=== PATIENT | female | born 1935 | race Caucasian/White ===

== ENCOUNTER 2020-02-01 07:59 | Emergency (ER) | payer MEDICARE, BC ==
--- NOTE | 2020-02-01 08:31 | EDM.PDOC ---
ED HPI GENERAL MEDICAL PROBLEM - General Chief Complaint: Neurological Problem Stated Complaint: dizzy Time Seen by Provider: 02/01/20 08:31 Source of Information: Reports: Patient, RN, RN Notes Reviewed History Limitations: Reports: No Limitations - History of Present Illness INITIAL COMMENTS - FREE TEXT/NARRATIVE: patient presents to ER with complaint of new onset dizziness. Patient states at 3:00 this morning she rolled over in bed and became very dizzy, with some nausea as well. Patient states when she gets up or turns her head she becomes very dizzy. Patient denies having dizziness in the past, denies any weakness. Patient denies any health problems, states she takes only vitamins on a daily basis. Patient denies any recent illness. States she has had somewhat of a runny nose, but denies fever, chills, nausea, vomiting, diarrhea, chest pains, shortness of breath. Patient denies any known exposure to anyone ill, and no travel. NIH score negative Onset: Gradual - Related Data Allergies Allergy/AdvReac Type Severity Reaction Status Date / Time No Known Allergies Allergy Verified 02/01/20 08:10 Home Meds: Home Meds Calcium Carbonate/Vitamin D3 [Calcium 500 + Vit D 400] 1 tab PO DAILY 02/01/20 [ History] Furosemide 20 mg PO DAILY 02/01/20 [History] Omeprazole 20 mg PO DAILY 02/01/20 [History] Risedronate Sodium 35 mg PO Q7D 02/01/20 [History] atorvaSTATin [Lipitor] 20 mg PO DAILY 02/01/20 [History] Past Medical History HEENT History: Reports: Impaired Vision Other HEENT History: wears glasses Cardiovascular History: Reports: High Cholesterol Respiratory History: Reports: None Gastrointestinal History: Reports: GERD Genitourinary History: Reports: None NANOFABRICATION SPECIALIST History: Reports: Musculoskeletal History: Reports: Osteoporosis Neurological History: Reports: None Psychiatric History: Reports: None Endocrine/Metabolic History: Reports: Osteoporosis Immunologic History: Reports: None Oncologic (Cancer) History: Reports: None Dermatologic History: Reports: None - Past Surgical History HEENT Surgical History: Reports: None Cardiovascular Surgical History: Reports: None Musculoskeletal Surgical History: Reports: None Social & Family History - Tobacco Use Smoking Status *Q: Never Smoker Second Hand Smoke Exposure: No - Caffeine Use Caffeine Use: Reports: Coffee - Recreational Drug Use Recreational Drug Use: No ED ROS GENERAL - Review of Systems Review Of Systems: Comprehensive ROS is negative, except as noted in HPI. ED EXAM, NEURO - Physical Exam Exam: See Below Exam Limited By: No Limitations General Appearance: Alert, WD/WN Eye Exam: Bilateral Eye: EOMI, Nystagmus Ears: Normal External Exam, Normal Canal, Hearing Grossly Normal, Normal TMs Nose: Normal Inspection Throat/Mouth: Normal Inspection, Normal Voice, No Airway Compromise Head Exam: Atraumatic, Normocephalic Neck: Normal Inspection, Supple, Non-Tender, Full Range of Motion Respiratory/Chest: No Respiratory Distress, Lungs Clear, Normal Breath Sounds, No Accessory Muscle Use, Chest Non-Tender Cardiovascular: Normal Peripheral Pulses, Regular Rate, Rhythm, No Edema, No Gallop, No JVD, No Murmur, No Rub GI/Abdominal: Normal Bowel Sounds, Soft, Non-Tender, No Organomegaly, No Distention, No Abnormal Bruit, No Mass (Female) Exam: Deferred Rectal (Female) Exam: Deferred Neurological: Alert, Normal Mood/Affect, Normal Dorsiflexion, CN II-XII Intact, Normal Plantar Flexion, Normal Gait, Normal Reflexes, No Motor/Sensory Deficits , Oriented x 3 Back Exam: Normal Inspection, Full Range of Motion, NT Extremities: Normal Inspection, Normal Range of Motion, Non-Tender, No Pedal Edema, Normal Capillary Refill Psychiatric: Normal Affect, Normal Mood Skin Exam: Warm, Dry, Intact, Normal Color, No Rash Course - Vital Signs Last Recorded V/S: Last Vital Signs Temp 97.6 F 02/01/20 08:05 Pulse 88 02/01/20 08:05 Resp 16 02/01/20 08:05 BP 158/80 H 02/01/20 08:05 Pulse Ox 98 02/01/20 08:05 - Orders/Labs/Meds Orders: Active Orders 24 hr Category Date Time Status Peripheral IV Care [RC] . DIRECTED Care 02/01/20 08:50 Active UA RFX KAYLI AND CULT IF INDIC [URIN] Stat Lab 02/01/20 08:49 Ordered Sodium Chloride 0.9% [Saline Flush] Med 02/01/20 08:49 Active 10 ml FLUSH ASDIRECTED PRN Peripheral IV Insertion Adult [OM.PC] Stat Oth 02/01/20 08:49 Ordered Medication Orders Sodium Chloride (Saline Flush) 10 ml FLUSH ASDIRECTED PRN PRN Reason: Keep Vein Open Last Admin: 02/01/20 09:18 Dose: 10 ml Labs: Laboratory Tests 02/01/20 02/01/20 Range/Units 09:07 09:07 WBC 9.0 (5.0-10.0) 10^3/uL RBC 4.66 (4.2-5.4) 10^6/uL Hgb 13.2 (12.0-16.0) g/dL Hct 39.5 (37.0-47.0) % MCV 84.8 (80-100) fL MCH 28.3 (27.0-34.0) pg MCHC 33.4 (33.0-35.0) g/dL Plt Count 263 (150-450) 10^3/uL Neut % (Auto) 75.8 H (42.2-75.2) % Lymph % (Auto) 15.6 L (20.5-50.1) % [place] % (Auto) 7.9 (2-8) % Eos % (Auto) 0.1 L (1.0-3.0) % Baso % (Auto) 0.6 (0.0-1.0) % Sodium 139 (136-145) mmol/L Potassium 3.5 (3.5-5.1) mmol/L Chloride 100 (98-107) mmol/L Carbon Dioxide 31 (21-32) mmol/L Anion Gap 11.5 (7-13) mEq/L BUN 25 H (7-18) mg/dL Creatinine 0.88 (0.55-1.02) mg/dL Est Cr Clr Drug Dosing 30.46 mL/min Estimated GFR (MDRD) > 60 BUN/Creatinine Ratio 28.4 (No establ ref range) Glucose 130 H (74-99) mg/dL Calcium 8.6 (8.5-10.1) mg/dL Total Bilirubin 0.3 (0.2-1.0) mg/dL AST 22 (15-37) U/L ALT 29 (14-59) U/L Alkaline Phosphatase 115 (46-116) U/L Total Protein 7.6 (6.4-8.2) g/dL Albumin 3.2 L (3.4-5.0) g/dL Globulin 4.4 Albumin/Globulin Ratio 0.73 Meds: Medications Generic Name Dose Route Start Last Admin Trade Name Colbyq PRN Reason Stop Dose Admin Sodium Chloride 10 ml 02/01/20 08:49 02/01/20 09:18 Saline Flush FLUSH 10 ml ASDIRECTED PRN Administration Keep Vein Open Discontinued Medications Generic Name Dose Route Start Last Admin Trade Name Colbyq PRN Reason Stop Dose Admin Meclizine HCl 12.5 mg 02/01/20 09:27 02/01/20 09:37 Antivert PO 02/01/20 09:28 12.5 mg ONETIME ONE Administration Ondansetron HCl 4 mg 02/01/20 09:18 02/01/20 09:22 Zofran IV 02/01/20 09:19 4 mg ONETIME ONE Administration - Radiology Interpretation Free Text/Narrative:: Head CT wo contrast: FINDINGS: Brain: Prominent sulci. Patchy hypodensity of the cerebral white matter which are nonspecific but likely secondary to microangiopathic changes. Bilateral basal ganglia lacunes are present. Ventricles: The ventricles are prominent secondary to diffuse volume loss/ atrophy. Bones/joints: Unremarkable. No acute fracture. Sinuses: Visualized sinuses are unremarkable. No fluid levels. Mastoid air cells: Visualized mastoid air cells are well aerated. Soft tissues: Unremarkable. IMPRESSION: Chronic age related changes but no evidence of acute intracranial pathology. Thank you for allowing us to participate in the care of your patient. Dictated and Authenticated by: Eloisa Marcelino MD 02/01/2020 9:20 AM Central Time ([place] & [place]) see rad report Departure - Departure Time of Disposition: 09:39 Disposition: Home, Self-Care 01 Condition: Fair Clinical Impression: Vertigo - Discharge Information *PRESCRIPTION DRUG MONITORING PROGRAM REVIEWED*: No *COPY OF PRESCRIPTION DRUG MONITORING REPORT IN PATIENT JG: No Instructions: Vertigo, [id number], Dizziness, [id number] Forms: ED Department Discharge Additional Instructions: On Sunday call [facility] Physical Therapy department to schedule an appointment [phone] RX: Meclizine Follow up with your primary care facility tomorrow. Call Venancio Leyva's office tomorrow to have a urinalysis done Sit up on the edge of chair/bed before standing. Take precautions so you do not fall Drink plenty of water Sepsis Event Note - Evaluation Sepsis Screening Result: No Definite Risk - Focused Exam Vital Signs: Vital Signs Temp Pulse Resp BP Pulse Ox 02/01/20 08:05 97.6 F 88 16 158/80 H 98 Date Exam was Performed: 02/01/20 Time Exam was Performed: 10:45 - My Orders Last 24 Hours: My Active Orders 02/01/20 08:49 UA RFX KAYLI AND CULT IF INDIC [URIN] Stat Sodium Chloride 0.9% [Saline Flush] 10 ml FLUSH ASDIRECTED PRN Peripheral IV Insertion Adult [OM.PC] Stat 02/01/20 08:50 Peripheral IV Care [RC] . DIRECTED - Assessment/Plan Last 24 Hours: My Active Orders 02/01/20 08:49 UA RFX KAYLI AND CULT IF INDIC [URIN] Stat Sodium Chloride 0.9% [Saline Flush] 10 ml FLUSH ASDIRECTED PRN Peripheral IV Insertion Adult [OM.PC] Stat 02/01/20 08:50 Peripheral IV Care [RC] . DIRECTED
[2020-02-01] MEDS ORDERED: Sodium Chloride 0.9% 10 ML Syringe FLUSH PRN (08:49)
[2020-02-01] MEDS ORDERED: Ondansetron 4 MG/2 ML SDV IV ONE (09:18)
[2020-02-01] MEDS ORDERED: Meclizine 12.5 MG Tab PO ONE (09:27)
[2020-02-01 09:31] LABS: ANION GAP 11.5 mEq/L (7-13); CHLORIDE,CL 100 mmol/L (98-107); SODIUM,NA 139 mmol/L (136-145)
== END 2020-02-01 11:08 | disposition home or self-care (01) ==
LOC: DL.ED 07:59
DX: R42 Dizziness and giddiness (principal); K21.9 Gastro-esophageal reflux disease without esophagitis; E78.00 Pure hypercholesterolemia, unspecified; Z79.899 Other long term (current) drug therapy
CPT/HCPCS: 36415; 70450; 80053; 85025; 96374; 99284; A9270; J2405; 99283

== ENCOUNTER 2020-12-22 08:54 | Day surgery (SDC) | payer MEDICARE, OTHER ==
[2020-12-22] MEDS ORDERED: Dexamethasone 4 MG/ML SDV IV ONE (08:55)
[2020-12-22] MEDS ORDERED: Sodium Chloride 0.9% 10 ML Syringe IV ONE (08:55)
[2020-12-22] MEDS ORDERED: Midazolam 1 MG/ML 2 ML SDV IV ONE (08:55)
[2020-12-22] MEDS ORDERED: Povidone-Iodine 5% Sterile Ophth Soln 30 ML Bottle EYELF ONE ×2 (09:00→09:48)
[2020-12-22] MEDS ORDERED: Timolol Maleate 0.5% Ophth Soln 5 ML Bottle EYELF ONE (09:00)
[2020-12-22] MEDS ORDERED: Cataract Ophth Solution EYELF ONE (09:00)
[2020-12-22] MEDS ORDERED: Proparacaine 0.5% Ophth Soln 15 ML Bottle EYELF ONE (09:00)
[2020-12-22] MEDS ORDERED: Phenylephrine 10% Ophth Soln 5 ML Bot EYELF ONE (09:00)
[2020-12-22] MEDS ORDERED: Acetaminophen 325 MG Tab PO PRN (09:00)
[2020-12-22] MEDS ORDERED: Moxifloxacin 0.5% Ophth Soln 3 ML Bottle EYELF ONE (09:00)
[2020-12-22] MEDS ORDERED: Phenylephrine 10% Ophth Soln 5 ML Bot EYELF PRN (09:00)
[2020-12-22] MEDS ORDERED: Tropicamide 1% Ophth Soln 15 ML Bottle EYELF ONE (09:00)
[2020-12-22] MEDS ORDERED: Sodium Chloride 0.9% 10 ML Syringe FLUSH PRN (09:00)
[2020-12-22] MEDS ORDERED: Ondansetron 4 MG/2 ML SDV IVPUSH PRN (09:00)
[2020-12-22] MEDS ORDERED: Lidocaine 1% 30 ML SDV ONE (09:47)
[2020-12-22] MEDS ORDERED: Tetracaine HCl/PF 0.5% 4 ML Bottle EYELF ONE (09:48)
[2020-12-22] MEDS ORDERED: Diclofenac Sodium 0.1% Ophth Soln 5 ML Bottle EYELF ONE (09:48)
[2020-12-22] MEDS ORDERED: Apraclonidine 0.5% Ophth Soln 5 ML Bot EYELF ONE (09:48)
[2020-12-22] MEDS ORDERED: Vancomycin 500 MG SDV EYELF ONE (09:49)
[2020-12-22] MEDS ORDERED: Balanced Salt Solution Ophth Irrig 500 ML Bottle IOCULAR ONE (09:49)
[2020-12-22] MEDS ORDERED: Dexamethasone/Neomycin/Polymyxin B Ophth Oint 3.5 GM Tube EYELF ONE (09:49)
[2020-12-22] MEDS ORDERED: Chondroitin Sulfate/Hyaluronate Sodium Ophth Inj 0.75 ML Syringe EYELF ONE (09:49)
[2020-12-22] MEDS ORDERED: Dexamethasone 4 MG/ML SDV IOCULAR ONE (09:50)
--- NOTE | 2020-12-22 11:34 | OR ---
DATE: 12/22/2020 PREOPERATIVE DIAGNOSIS: Visually significant mixed cataract, left eye. POSTOPERATIVE DIAGNOSIS: Visually significant mixed cataract, left eye. PROCEDURE: Extracapsular cataract extraction with intraocular lens implant, left eye. ANESTHESIA: Topical/local MAC. COMPLICATIONS: None. INDICATION: Mrs. Andrew was seen in the clinic. She has complained of a progressive decrease in vision. She has difficulty with multiple activities of daily living. She has difficulty driving and actually has stopped driving because she is uncomfortable and feels unsafe. She has difficulty seeing street signs. She has difficulty with bright lights and glare. She saw her regular provider, Dr. Dukes. Dr. Dukes was not able to improve her vision with a change in glasses. Examination reveals best spectacle corrected vision at the level of 20/50. Oncoming light reveals a visual acuity of 20/unable. Slit-lamp examination reveals visually significant mixed cataract. I explained options, offered cataract surgery, and I explained risks including, but not limited to infection, retinal detachment, loss of vision, need for additional surgery, and risks associated with anesthesia. We discussed implant options. She has requested a toric implant. She understands that she may still need glasses for some activities, especially near work. OPERATIVE DESCRIPTION: After informed consent was obtained and the risks, benefits, and alternatives were explained, the patient was brought to the operative suite and topical anesthesia was administered. The patient was then prepped and draped in the sterile fashion and attention was placed on the left eye. A sterile lid speculum was placed into the left eye to allow operative exposure. A full-thickness paracentesis was made in the temporal portion of the operative eye. Preservative-free lidocaine 0.1 mL was injected into the anterior chamber followed by viscoelastic. A full-thickness corneal incision was then made into the anterior chamber. A bent needle cystotome was used to create a small giuseppe in the anterior capsule. The capsulorrhexis forceps was then used to create a 360-degree curvilinear capsulorrhexis. The nucleus was then removed using a phacoemulsification handpiece and the remaining cortical material was then removed with irrigation and aspiration handpiece. Following removal of the cortical material, the capsular bag was then inspected and noted to be free of any holes or tears. Viscoelastic was then injected into the capsular bag and the intraocular lens was inserted into the capsular bag. The implant was oriented to correspond with the steep axis of the corneal astigmatism. The viscoelastic material was then removed from both the anterior and posterior chambers and from behind the IOL. The lens and capsular bag were then reinspected. The IOL was well centered and the capsular bag intact. The wound and paracentesis sites were inspected and hydrated with balanced saline solution. Both were found to be self-sealing. The intraocular pressure was assessed digitally and found to be within normal range. A good red reflex was noted at the completion of the procedure. No complications occurred during the operation. At the completion of the procedure, Maxitrol, Voltaren, and Iopidine drops were placed into the operative eye. A sterile eye shield was placed over the operative eye and the patient was transported to the postoperative recovery area having tolerated the procedure well. Postoperative instructions were given along with a postoperative appointment. The patient was advised to call with any questions or concerns. [facility] /[id number]
== END 2020-12-22 11:03 | disposition home or self-care (01) ==
LOC: DL.SDS 08:54
PROVIDERS: ATTEND Ophthalmology
DX: H26.8 Other specified cataract (principal); H61.23 Impacted cerumen, bilateral; E78.5 Hyperlipidemia, unspecified; M81.0 Age-related osteoporosis without current pathological fracture; Z79.899 Other long term (current) drug therapy; Z98.890 Other specified postprocedural states
CPT/HCPCS: 00142; 66984; A9270; J1100; J2250; J3370; V2787-GY

== ENCOUNTER 2020-12-29 08:49 | Day surgery (SDC) | payer MEDICARE, BC, OTHER ==
[2020-12-29] MEDS ORDERED: Midazolam 1 MG/ML 2 ML SDV IV ONE (08:50)
[2020-12-29] MEDS ORDERED: Dexamethasone 4 MG/ML SDV IV ONE (08:50)
[2020-12-29] MEDS ORDERED: Sodium Chloride 0.9% 10 ML Syringe IV ONE (08:50)
[2020-12-29] MEDS ORDERED: Sodium Chloride 0.9% 10 ML Syringe FLUSH PRN (09:00)
[2020-12-29] MEDS ORDERED: Timolol Maleate 0.5% Ophth Soln 5 ML Bottle EYERT ONE (09:00)
[2020-12-29] MEDS ORDERED: Ondansetron 4 MG/2 ML SDV IVPUSH PRN (09:00)
[2020-12-29] MEDS ORDERED: Phenylephrine 10% Ophth Soln 5 ML Bot EYERT ONE ×2 (09:00→10:00)
[2020-12-29] MEDS ORDERED: Acetaminophen 325 MG Tab PO PRN (09:00)
[2020-12-29] MEDS ORDERED: Phenylephrine 10% Ophth Soln 5 ML Bot EYERT PRN (09:00)
[2020-12-29] MEDS ORDERED: Cataract Ophth Solution EYERT ONE (09:00)
[2020-12-29] MEDS ORDERED: Proparacaine 0.5% Ophth Soln 15 ML Bottle EYERT ONE (09:00)
[2020-12-29] MEDS ORDERED: Moxifloxacin 0.5% Ophth Soln 3 ML Bottle EYERT ONE (09:00)
[2020-12-29] MEDS ORDERED: Povidone-Iodine 5% Sterile Ophth Soln 30 ML Bottle EYERT ONE ×2 (09:00→10:00)
[2020-12-29] MEDS ORDERED: Tropicamide 1% Ophth Soln 15 ML Bottle EYERT ONE (09:00)
[2020-12-29] MEDS ORDERED: Tetracaine HCl/PF 0.5% 4 ML Bottle EYERT ONE (09:59)
[2020-12-29] MEDS ORDERED: Lidocaine 1% 30 ML SDV ONE (09:59)
[2020-12-29] MEDS ORDERED: Apraclonidine 0.5% Ophth Soln 5 ML Bot EYERT ONE (09:59)
[2020-12-29] MEDS ORDERED: Diclofenac Sodium 0.1% Ophth Soln 5 ML Bottle EYERT ONE (09:59)
[2020-12-29] MEDS ORDERED: Balanced Salt Solution Ophth Irrig 500 ML Bottle IOCULAR ONE (10:00)
[2020-12-29] MEDS ORDERED: Chondroitin Sulfate/Hyaluronate Sodium Ophth Inj 0.75 ML Syringe EYERT ONE (10:00)
[2020-12-29] MEDS ORDERED: Vancomycin 500 MG SDV EYERT ONE (10:00)
[2020-12-29] MEDS ORDERED: Dexamethasone 4 MG/ML SDV IOCULAR ONE (10:03)
--- NOTE | 2020-12-29 12:52 | OR ---
DATE: 12/29/2020 PREOPERATIVE DIAGNOSIS: Visually significant mixed cataract, right eye. POSTOPERATIVE DIAGNOSIS: Visually significant mixed cataract, right eye. PROCEDURE: Extracapsular cataract extraction with intraocular lens implant, right eye. ANESTHESIA: Topical/local MAC. COMPLICATIONS: None. INDICATION: Ms. Andrew was seen in the clinic. She has complained of a slow progressive decrease in vision. Her examination reveals advanced cataract. I explained options, offered cataract surgery, and I explained risks, including, but not limited to, infection, retinal detachment, loss of vision, need for additional surgery, and risks associated with anesthesia. We discussed implant options. She has requested a toric implant. I did explain that she may still require glasses for some activities, especially near work. She is unhappy with her vision and requested surgery. She saw Dr. Dukes and Dr. Dukes was not able to meet her visual needs with a change in glasses. OPERATIVE DESCRIPTION: After informed consent was obtained and the risks, benefits, and alternatives were explained, the patient was brought to the operative suite and topical anesthesia was administered. The patient was then prepped and draped in the sterile fashion and attention was placed on the right eye. A sterile lid speculum was placed into the right eye to allow operative exposure. A full-thickness paracentesis was made in the temporal portion of the operative eye. Preservative-free lidocaine 0.1 mL was injected into the anterior chamber followed by viscoelastic. A full-thickness corneal incision was then made into the anterior chamber. A bent needle cystotome was used to create a small giuseppe in the anterior capsule. The capsulorrhexis forceps was then used to create a 360-degree curvilinear capsulorrhexis. The nucleus was then removed using a phacoemulsification handpiece and the remaining cortical material was then removed with irrigation and aspiration handpiece. Following removal of the cortical material, the capsular bag was then inspected and noted to be free of any holes or tears. Viscoelastic was then injected into the capsular bag and the intraocular lens was inserted into the capsular bag. The implant was oriented to correspond with preoperative corneal clarke made with the patient in the upright position. The viscoelastic material was then removed from both the anterior and posterior chambers and from behind the IOL. The lens and capsular bag were then reinspected. The IOL was well centered and the capsular bag intact. The wound and paracentesis sites were inspected and hydrated with balanced saline solution. Both were found to be self-sealing. The intraocular pressure was assessed digitally and found to be within normal range. A good red reflex was noted at the completion of the procedure. No complications occurred during the operation. At the completion of the procedure, Maxitrol, Voltaren, and Iopidine drops were placed into the operative eye. A sterile eye shield was placed over the operative eye and the patient was transported to the postoperative recovery area having tolerated the procedure well. Postoperative instructions were given along with a postoperative appointment. The patient was advised to call with any questions or concerns. [facility] /[id number]
== END 2020-12-29 11:14 | disposition home or self-care (01) ==
LOC: DL.SDS 08:49
PROVIDERS: ATTEND Ophthalmology
DX: H26.8 Other specified cataract (principal); E78.5 Hyperlipidemia, unspecified; N60.99 Unspecified benign mammary dysplasia of unspecified breast; M81.0 Age-related osteoporosis without current pathological fracture; K57.30 Diverticulosis of large intestine without perforation or abscess without bleeding; H61.23 Impacted cerumen, bilateral; Z79.899 Other long term (current) drug therapy
CPT/HCPCS: 00142; 66984; J1100; J2250; J3370; V2787